=== PATIENT | female | born 1960 | race Caucasian/White ===

== ENCOUNTER → 2019-12-01 | Outpatient (CLI) | payer BC ==
--- NOTE | 2019-12-07 10:49 | SLEEPCENT ---
DATE OF PROCEDURE: 12/01/2019 ORDERED BY: Dr. Lala Nocturnal polysomnography was performed for evaluation of sleep physiology in this patient with history of excessive somnolence and nonrestorative sleep who has comorbidities of hypertension, cerebrovascular disease, and acid reflux. 8 hours and 36 minutes of data were reviewed. There 325 minutes of sleep identified. Sleep latency was normal at 15 minutes. Rapid eye movement (REM) latency was normal at 88 minutes. Sleep architecture showed some fragmentation early in the study. Improvement was seen after interventions were made. Overall sleep efficiency was 63.6%. The electrocardiogram showed a sinus rhythm with an average heart rate of 62 beats. Electroencephalogram (EEG) showed normal waveforms for awake and sleep. There were 168 respiratory events identified of 10 seconds in duration or greater for an apnea-hypopnea index of 31. The events were associated with oxygen desaturations into the 70s. Having clearly established the presence of obstructive sleep apnea syndrome early in testing the study was stopped shortly before 1 a.m. for the application of pressure therapy. The patient was fit with a [employer] Quattro full-face mask of small size; 4 cm of water pressure were applied to the circuit and the lights were again extinguished. The patient had some difficulty re-establishing sleep. Once asleep, optimal pressure therapy was found to be 10 cm of water with which the patient slept through REM in the supine posture without oxygen desaturations or respiratory obstructive event. Remaining measures of sleep physiology were reasonably normal. IMPRESSION: Obstructive sleep apnea syndrome (G47.33). Apnea-hypopnea index 31. RECOMMENDATIONS: Nightly use of pressure therapy 10 cm of water.
== END ==
LOC: M SLEEP 20:00
PROVIDERS: ATTEND Internal Medicine Pulmonary Disease
DX: G47.33 Obstructive sleep apnea (adult) (pediatric) (principal)

== ENCOUNTER → 2021-10-05 | Outpatient (CLI) | payer BC | LOC: M SLEEP HO 14:18 | PROVIDERS: ATTEND Internal Medicine Pulmonary Disease | DX: G47.33 Obstructive sleep apnea (adult) (pediatric) (principal) ==

== ENCOUNTER → 2023-06-08 | Outpatient (REF) | payer OTHER | LOC: M LAB REF 11:33 | PROVIDERS: ATTEND Podiatrist | DX: L03.042 Acute lymphangitis of left toe (principal) ==

== ENCOUNTER → 2024-10-30 | Outpatient (CLI) | payer BC ==
[2024-10-30 11:05] LABS: BASO % 0.4 % (0.0-1.0); EOS # 0.2 10^3/uL (0.0-0.5); EOS % 1.7 % (0.0-3.0); HEMATOCRIT 39.7 % (36.0-47.0); HEMOGLOBIN 13.5 g/dl (12.0-15.5); LYMPH # 2.7 10^3/uL (1.5-5.0); LYMPH % 28.8 % (24.0-44.0); MEAN CORPUSCULAR HEMOGLOBIN 31.8 pg (27.0-33.0); MEAN CORPUSCULAR VOLUME 93.4 fl (80.0-96.0); MONO # 0.7 10^3/uL (0.0-0.8); NEUTROPHILS # 5.9 10^3/uL (1.5-8.5); NEUTROPHILS % 61.7 % (36.0-66.0); PLATELET COUNT, AUTOMATED 225 10^3/uL (150-450); RED BLOOD COUNT 4.25 10^6/uL (4.00-5.40); WHITE BLOOD COUNT 9.5 10^3/uL (4.0-10.0)
[2024-10-30 11:48] LABS: ALBUMIN 3.8 G/DL (3.2-5.2); BILIRUBIN,TOTAL 0.4 MG/DL (0.3-1.2); CALCIUM LEVEL 8.9 MG/DL (8.3-10.6); CREATININE FOR GFR 0.91 MG/DL (0.55-1.30); FOLATE 8.53 NG/ML (>5.4); FREE THYROXINE INDEX 2.7 % (1.3-4.8); GLOMERULAR FILTRATION RATE 70.9 (>45); POTASSIUM SERUM 4.3 MMOL/L (3.5-5.1); T UPTAKE 26.1 % (22.5-37.0); THYROID STIMULATING HORMONE 1.316 uIU/ML (0.55-4.78); THYROXINE (T4) 10.3 UG/DL (4.5-10.9); TOTAL PROTEIN 6.7 G/DL (5.7-8.2)
== END ==
LOC: M LAB 10:32
PROVIDERS: ATTEND Psychiatry & Neurology Neurology
DX: E53.8 Deficiency of other specified B group vitamins (principal)